=== PATIENT | male | born 1935 | race Caucasian/White ===

== ENCOUNTER 2018-07-03 08:17 | Observation (INO) | payer MEDICARE, OTHER ==
[2018-06-27 12:50] VITALS: BP 127/59
[2018-06-27 13:06] LABS: BASOPHILS % (AUTO) 1.1 % (0.0-5.0); EOSINOPHILS % (AUTO) 5.6 % (0.0-8.0); MEAN CORPUSCULAR HEMOGLOBIN 30.8 pg (27.0-33.0); MEAN CORPUSCULAR HGB CONC 33.6 g/dL (32.0-36.0); MEAN CORPUSCULAR VOLUME 91.8 fL (79-99); MONOCYTES % (AUTO) 10.5 % (3.0-13.0); NEUTROPHILS % (AUTO) 54.8 % (40.0-77.0); NUCLEATED RED BLOOD CELLS 0.1 % (0.0-0.19); PLATELET COUNT (AUTO) 165 K/uL (130-400); RED BLOOD CELL COUNT(AUTO) 4.47 MIL/uL (4.50-6.20); RED CELL DISTRIBUTION WIDTH 13.5 % (11.0-15.5); WHITE BLOOD COUNT (AUTO) 7.1 K/uL (4.8-10.8)
[2018-06-27 13:20] LABS: CREATININE 1.3 mg/dL (0.5-1.5); POTASSIUM 4.4 mmol/L (3.5-5.1)
[2018-06-27 13:32] LABS: INR 1.21 (0.85-1.15); PARTIAL THROMBOPLASTIN TIME 38.5 SEC (26.3-35.5); PROTHROMBIN TIME 12.7 SEC (9.6-11.6)
--- NOTE | 2018-07-02 10:22 | NUR ---
ABNORMAL LABS BMP RESULT SHOWED/REPORTED TO VIKAS POPE. NO FURTHER ORDERS RONNIE. Addendum: 07/02/18 at 1023 by ROCKY PATEL RN RN TYPO ERROR, CORRECT: NO FURTHER ORDERS GIVEN.
[2018-07-03] VITALS (9 sets, daily range): BP systolic 99–143; BP diastolic 54–68
[~2018-07-03] VITALS: Ht 175.3 cm; Wt 130.4 kg
[~2018-07-03 08:17] MED LIST: ALBU1.252 IH; ALLO100T PO; ANTI1CAP5 PO; ASPI-555 PO; ATOR10 PO; CETI10TA86 PO; FOLI0.4T2 PO; LISI1TAB13 PO; METF500S7 PO; METO-408 PO; MULT-1203 PO; RIVA20TA PO; SODIUM CHLORIDE 0.9% 1000ML 1,000 ML IV SCH
[2018-07-03] MEDS ORDERED: CEFAZOLIN SODIUM 1 GM VIAL ONE (09:21)
[2018-07-03] MEDS ORDERED: LIDOCAINE HCL 1% MDV 50ML VIAL ONE (09:21)
[2018-07-03] MEDS ORDERED: BUPIVACAINE/PF 0.25% 30ML VIAL IJ ONE (09:21)
--- NOTE | 2018-07-03 09:30 | NUR ---
PROCEDURE PT TAKEN TO TECHNICAL SERVICES SPECIALIST FOR PROCEDURE. PT AWAKE AND ALERT, FAMILY AT BEDSIDE
[2018-07-03] MEDS ORDERED: VANCOMYCIN 1GM+NS 250ML 250 ML IV ONE ×2 (09:43→09:45)
[2018-07-03] MEDS ORDERED: MIDAZOLAM HCL 1 MG/ML 2ML VIAL ONE ×4 (09:56→11:11)
[2018-07-03] MEDS ORDERED: MEPERIDINE-PF 25 MG/ML SYG ONE ×2 (09:56→10:14)
[2018-07-03] MEDS ORDERED: IOHEXOL-350 50ML VIAL IV ONE (09:58)
[2018-07-03] MEDS ORDERED: IOHEXOL 350 MG/ML 100ML INFUS..BTL IV ONE (10:00)
[2018-07-03] MEDS ORDERED: MEPERIDINE-PF 50 MG/ML SYG ONE (10:31)
[2018-07-03] MEDS ORDERED: THROMBIN-JMI 5000 UNIT/VIAL TP ONE (11:45)
[2018-07-03] MEDS ORDERED: OCTYL 2-CYANOACRYLATE 1 EACH TP ONE (12:01)
[2018-07-03] MEDS ORDERED: ONDANSETRON HCL 4 MG/2 ML VIAL IV PRN (12:30)
[2018-07-03] MEDS ORDERED: ACETAMINOPHEN-CODEINE 300/30MG TAB PO PRN ×2 (12:30)
[2018-07-03] MEDS ORDERED: DEXTROSE 50%-WATER 50 ML DISP.SYRIN IV PRN ×2 (12:30→20:45)
--- NOTE | 2018-07-03 12:50 | NUR ---
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 NO HEMATOMA OR BLEEDING NOTED. VS STABLE ON ARRIVAL. PLAN OF CARE DISCUSS WITH PATIENT/ SPOUSE/SON. PT DENIED ANY PAIN OR DISCOMFORTS.
--- NOTE | 2018-07-03 14:35 | NUR ---
TRANSFERRED PT TRANSFERRED TO ROOM 205, PT AWAKE AND ALERT IN BED, LEFT UPPER CHEST DRESSING DRY AND INTACT, REPORT GIVEN TO VIRGIL ASTORGA.
[2018-07-03] MEDS ORDERED: ALBU1.252 IH (16:34)
[2018-07-03] MEDS ORDERED: METF-444 PO (16:34)
[2018-07-03] MEDS ORDERED: FOLI1TAB15 PO (16:35)
[2018-07-03] MEDS ORDERED: METO25TA6 PO (16:36)
[2018-07-03] MEDS ORDERED: FLUT16H NASAL (16:41)
[2018-07-03] MEDS ORDERED: CYAN10007 IJ (16:41)
[2018-07-03] MEDS ORDERED: MONT10TA24 PO (16:41)
[2018-07-03] MEDS ORDERED: BACL10TA PO (16:41)
[2018-07-03] MEDS ORDERED: NITR0.4T SL (16:41)
[2018-07-03] MEDS: INSULIN HUMULIN R 100 UNIT/ML 3ML SQ SCH ×2 (16:52→21:00)
[2018-07-03] MEDS: ALBUTEROL SULFATE 0.042% 1.25 MG/3 ML INH IH SCH (18:46)
[2018-07-03] MEDS ORDERED: ALBUTEROL SULFATE 0.042% 1.25 MG/3 ML INH IH PRN (20:30)
[2018-07-03] MEDS ORDERED: POTASSIUM CHLORIDE 10% ELIXIR 20 MEQ/15 ML UDCUP PO PRN (20:45)
[2018-07-03] MEDS ORDERED: POTASSIUM CHLORIDE 20MEQ/100ML 100 ML IV PRN (20:45)
[2018-07-03] MEDS ORDERED: LIDOCAINE HCL-MPF 1% 2ML VIAL IVP PRN (20:45)
[2018-07-03] MEDS ORDERED: GLUCAGON 1MG KIT 1 MG ML IM PRN (20:45)
[2018-07-03] MEDS ORDERED: POTASSIUM CHLORIDE 20 MEQ ERTAB PO PRN (20:45)
[2018-07-03] MEDS ORDERED: VANCOMYCIN 1GM+NS 250ML 250 ML IV SCH (21:00)
[2018-07-03] MEDS ORDERED: FOLIC ACID 1 MG TABLET PO SCH (21:00)
[2018-07-03] MEDS ORDERED: ALLOPURINOL 100 MG TABLET PO SCH (21:00)
[2018-07-03] MEDS ORDERED: CETIRIZINE HCL 5 MG TABLET PO SCH (21:00)
[2018-07-03] MEDS ORDERED: ASPIRIN 81MG TAB.CHEW PO SCH (21:00)
[2018-07-03] MEDS ORDERED: ATORVASTATIN CALCIUM 10 MG TABLET PO SCH (21:00)
[2018-07-03] MEDS: METOPROLOL TARTRATE 25 MG TAB PO SCH (21:00)
[2018-07-03] MEDS ORDERED: RIVAROXABAN 20 MG TABLET PO SCH (21:00)
[2018-07-04 00:13] VITALS: BP 118/68
[2018-07-04 04:35] VITALS: BP 121/70
[2018-07-04] MEDS: INSULIN HUMULIN R 100 UNIT/ML 3ML SQ SCH (05:47)
[2018-07-04] MEDS: ALBUTEROL SULFATE 0.042% 1.25 MG/3 ML INH IH SCH (06:58)
[2018-07-04 07:17] VITALS: BP 118/65
--- NOTE | 2018-07-04 07:45 | NUR ---
AM ASSESSMENT PT LAYING IN BED, HOB ELEVATED 30 DEGREES, RESTING. A/O X 3. NO SOB. NO DISTRESS NOTED. DENIES CHEST PAIN OR DISCOMFORT. DENIES PALPITATIONS. DENIES INCISIONAL PAIN. TELE: AV PACED 70s. DENIES N/V AND/OR DIARRHEA. LT UPPER CHEST INCISION DSG DRY & INTACT. NO BLEEDING, NO HEMATOMA NOTED. SLING TO LT ARM. ARM PRECAUTIONS REINFORCE. UP W/ASSISTANCE. INSTRUCTED TO CALL FOR ASSISTANCE. CALL [facility] W/IN REACH.
[2018-07-04] MEDS: METOPROLOL TARTRATE 25 MG TAB PO SCH (07:59)
[2018-07-04] MEDS ORDERED: METFORMIN HCL 500 MG TAB.SR.24H PO SCH (08:00)
[2018-07-04] MEDS ORDERED: [UNRECOGNIZED DRUG - OTHER] PO SCH (09:00)
[2018-07-04] MEDS ORDERED: HYDROCHLOROTHIAZIDE 25 MG TABLET PO SCH (09:00)
[2018-07-04] MEDS ORDERED: LISINOPRIL 20 MG TABLET PO SCH (09:00)
[2018-07-04] MEDS ORDERED: MULTIVITAMIN TABLET PO SCH (09:00)
--- NOTE | 2018-07-04 10:45 | NUR ---
DISCHARGE VERBAL& WRITTEN DISCHARGE INSTRUCTIONS REVIEWED & GIVEN TO PT. QUESTIONS ENCOURAGED & CLARIFIED. PROPER CARE & ACTIVITY BiV ICD UPGRADE. NEW PRESCRIBED MEDICATIONS REVIEWED. PRESCRIPTION GIVEN TO PT; SIGNED COPY PLACED IN CHART. PT INFORMED TO RESUME TAKING METFORMIN TOMORROW. TELE RAFAT REMOVED. IV DISCONTINUED. PT & FAMILY TO GATHER PERSONAL BELONGINGS. WILL NOTIFY STAFF WHEN READY TO BE TAKEN TO PRIVATE VEHICLE.
[2018-07-04 11:14] VITALS: BP 117/65
--- NOTE | 2018-07-04 11:20 | NUR ---
DISCHARGE PT TAKEN TO PRIVATE VEHICLE VIA WC BY A DI[facility]OND PCP, ACCOMPANIED BY FAMILY. NO DISTRESS NOTED.
[2018-07-04] MEDS ORDERED: DOXY100T2 PO (23:57)
== END 2018-07-04 11:19 | disposition home or self-care (01) ==
LOC: DAH 08:17 → DAHIP 08:18 → 2AH 14:24
PROVIDERS: ADMIT Internal Medicine; ATTEND Internal Medicine
DX: I13.10 Hypertensive heart and chronic kidney disease without heart failure, with stage 1 through stage 4 chronic kidney disease, or unspecified chronic kidney disease (principal); N18.9 Chronic kidney disease, unspecified; D68.69 Other thrombophilia; D69.6 Thrombocytopenia, unspecified; E11.21 Type 2 diabetes mellitus with diabetic nephropathy; E11.22 Type 2 diabetes mellitus with diabetic chronic kidney disease; E78.1 Pure hyperglyceridemia; G47.30 Sleep apnea, unspecified; E11.42 Type 2 diabetes mellitus with diabetic polyneuropathy; I25.10 Atherosclerotic heart disease of native coronary artery without angina pectoris; I48.1 Persistent atrial fibrillation; G95.9 Disease of spinal cord, unspecified; I49.5 Sick sinus syndrome; I70.0 Atherosclerosis of aorta; K80.20 Calculus of gallbladder without cholecystitis without obstruction; M10.9 Gout, unspecified; M51.9 Unspecified thoracic, thoracolumbar and lumbosacral intervertebral disc disorder; J30.9 Allergic rhinitis, unspecified; J84.10 Pulmonary fibrosis, unspecified; Z79.01 Long term (current) use of anticoagulants; Z95.0 Presence of cardiac pacemaker; Z96.653 Presence of artificial knee joint, bilateral; Z82.49 Family history of ischemic heart disease and other diseases of the circulatory system; Z83.3 Family history of diabetes mellitus; Z82.3 Family history of stroke
CPT/HCPCS: 33225; 33228; 36415; 71046; 80048; 82948 ×5; 85025; 85610; 85730; 93005; 93724; 94640 ×2; 94664; 96365; 96366; 96372; A4606; C1769 ×3; C1894; C1900; C2621; G0378 ×23; J2175 ×3; J2250 ×4; J3370 ×3; J3490 ×3; J7030; Q9965; Q9967 ×2; 99156; 99157; J0690

== ENCOUNTER → 2018-12-12 | Outpatient (CLI) | payer OTHER ==
[~2018-12-12] MED LIST changes: +BACL10TA PO; -CETI10TA86 PO; +CYAN10007 IJ; +DOXY100T2 PO; +FLUT16H NASAL; -FOLI0.4T2 PO; +FOLI1TAB15 PO; -LISI1TAB13 PO; +LISI1TAB29 PO; +METF-444 PO; -METF500S7 PO; -METO-408 PO; +METO25TA6 PO; +MONT10TA24 PO; +NITR0.4T SL; -SODIUM CHLORIDE 0.9% 1000ML 1,000 ML IV SCH
== END | disposition home or self-care (01) ==
LOC: RAH 13:28
PROVIDERS: ATTEND Physical Medicine & Rehabilitation
DX: M47.26 Other spondylosis with radiculopathy, lumbar region (principal); M47.22 Other spondylosis with radiculopathy, cervical region; M25.78 Osteophyte, vertebrae
CPT/HCPCS: 72052; 72110

== ENCOUNTER → 2019-10-02 | Outpatient (CLI) | payer OTHER ==
[~2019-10-02] MED LIST changes: -ASPI-555 PO; +ASPI-556 PO; -MONT10TA24 PO; +MONT10TA26 PO; +REGADENOSON 0.4 MG/5 ML PF SYG IVP SCH
== END | disposition home or self-care (01) ==
LOC: SHCH 08:42
PROVIDERS: ATTEND Internal Medicine Cardiovascular Disease
DX: I25.89 Other forms of chronic ischemic heart disease (principal); I25.10 Atherosclerotic heart disease of native coronary artery without angina pectoris
CPT/HCPCS: 78452; 93017; 96374; A9500 ×2; J2785

== ENCOUNTER → 2019-10-14 | Outpatient (CLI) | payer OTHER ==
[~2019-10-14] MED LIST changes: -REGADENOSON 0.4 MG/5 ML PF SYG IVP SCH
== END | disposition home or self-care (01) ==
LOC: OIH 11:05
PROVIDERS: ATTEND Physical Medicine & Rehabilitation
DX: M25.562 Pain in left knee (principal); Z96.652 Presence of left artificial knee joint
CPT/HCPCS: 73560

== ENCOUNTER → 2020-06-22 | Outpatient (CLI) | payer OTHER ==
[~2020-06-22] MED LIST changes: -ALBU1.252 IH; -ALLO100T PO; -ANTI1CAP5 PO; -BACL10TA PO; +CETI-89 PO; -CYAN10007 IJ; -DOXY100T2 PO; -FLUT16H NASAL; -FOLI1TAB15 PO; +FOLIC ACID PO; +GABA300C PO; +ISOS30TA92 PO; -MONT10TA26 PO; -MULT-1203 PO; +MULT-1258 PO
== END | disposition home or self-care (01) ==
LOC: RAH 14:45
PROVIDERS: ATTEND Physical Medicine & Rehabilitation
DX: M47.26 Other spondylosis with radiculopathy, lumbar region (principal); M48.061 Spinal stenosis, lumbar region without neurogenic claudication; Z96.641 Presence of right artificial hip joint; Z96.698 Presence of other orthopedic joint implants
CPT/HCPCS: 72131

== ENCOUNTER 2022-08-25 13:00 | Inpatient (IN) | payer MEDICARE ==
[~2022-08-25] VITALS: Ht 170.2 cm; Wt 128.1 kg
[2022-08-25 11:23] LABS: HEMATOCRIT 38.8 % (42-54); MEAN CORPUSCULAR HEMOGLOBIN 30.1 pg (27.0-33.0); MEAN CORPUSCULAR VOLUME 91.3 fL (79-99); PLATELET COUNT (AUTO) 138 K/uL (130-400); RED BLOOD CELL COUNT(AUTO) 4.25 MIL/uL (4.50-6.20); RED CELL DISTRIBUTION WIDTH 12.8 % (11.0-15.5); WHITE BLOOD COUNT (AUTO) 5.5 K/uL (4.8-10.8)
[2022-08-25 11:34] LABS: ALBUMIN 3.4 g/dL (3.5-5.0); CARBON DIOXIDE 25 mmol/L (21-32); CHLORIDE 101 mmol/L (101-111); CREATININE 1.3 mg/dL (0.5-1.5); GLOMERULAR FILTR. RATE CALC 54 mL/min (>90); GLUCOSE,RANDOM 199 mg/dL (70-105); POTASSIUM 3.8 mmol/L (3.5-5.1); SODIUM SERUM 136 mmol/L (136-145); UREA NITROGEN, BLOOD 20 mg/dL (7-18)
[2022-08-25 11:38] LABS: INR 1.28 (0.85-1.15); PROTHROMBIN TIME 14.6 SEC (9.6-11.6)
[2022-08-25 11:38] LABS: APPEARANCE,URINE CLEAR (CLEAR); BILIRUBIN,URINE NEGATIVE (NEGATIVE); COLOR,URINE YELLOW (YELLOW); GLUCOSE, URINE (UA) 30 mg/dL (NEGATIVE); KETONES,URINE NEGATIVE (NEGATIVE); LEUKOCYTE ESTERASE ,URINE 25 Leu/uL (NEGATIVE); NITRATE,URINE NEGATIVE (NEGATIVE); OCCULT BLOOD,URINE NEGATIVE (NEGATIVE); PH,URINE 5.5 (5.0-8.0); PROTEIN,URINE NEGATIVE (NEGATIVE); UROBILINOGEN,URINE 0.2 mg/dL (0.2-1.0)
[2022-08-25 11:40] LABS: PARTIAL THROMBOPLASTIN TIME 39.2 SEC (26.3-35.5)
[2022-08-25 11:51] LABS: CRP QUANTITATIVE < 0.03 mg/L (0.00-9.0)
[2022-08-25 11:57] VITALS: BP 135/74; PULSE 84; RESP 17
[2022-08-25 12:15] LABS: EOSINOPHILS % (MANUAL) 6 % (1-6); LYMPHOCYTES % (MANUAL) 18 % (22-44); MAN.DIFF COMMENT-IMPRESSION MANUAL DIFFERENTIAL; MONOCYTES % (MANUAL) 7 % (2-9); SEGMENTED NEUTROPHILS % 69 % (40-70)
[2022-08-25 12:16] LABS: PLATELET MORPHOLOGY COMMENT ADEQUATE
[~2022-08-25 13:00] MED LIST changes: +ALLO100T PO; +CARV3.12 PO; +DILT120C78 PO; +DOCU100T PO; +FLUT1AER IH; +GLIM1TAB18 PO; +HYDR25TA PO; -LISI1TAB29 PO; +LISI5TAB21 PO; -METF-444 PO; -METO25TA6 PO; +MV-M1CAP24 PO; -NITR0.4T SL; +PANT40TA54 PO; +VIT1CAPS47 PO
[2022-08-28] VITALS (25 sets, daily range): BP systolic 129–162; BP diastolic 67–81; PULSE 71–102; RESP 15–20; O2SAT 98
[2022-08-28] MEDS ORDERED: CEFAZOLIN SODIUM 1 GM VIAL ONE (08:28)
[2022-08-28] MEDS ORDERED: 0.9%NACL 1000ML 1,000 ML IV ONE (08:28)
[2022-08-28] MEDS ORDERED: CEFAZOLIN SODIUM 2 GM VIAL ONE (08:28)
[2022-08-28] MEDS ORDERED: CYAN10007 IJ (09:45)
[2022-08-28] MEDS ORDERED: LIDOCAINE PF 100MG/5ML (2%) SYRINGE 5ML ONE (10:42)
[2022-08-28] MEDS ORDERED: DEXAMETHASONE SOD PHOSPHATE 10MG/ML 1ML VIAL ONE (10:42)
[2022-08-28] MEDS ORDERED: SUCCINYLCHOLINE 200MG/10ML SYR ONE (10:42)
[2022-08-28] MEDS ORDERED: ONDANSETRON 4MG INJ ONE (10:42)
[2022-08-28] MEDS ORDERED: FENTANYL CITRATE PF 50 MCG/1 ML 2ML VIAL ONE ×2 (10:43→13:49)
[2022-08-28] MEDS ORDERED: PROPOFOL 10 MG/ML 20ML VIAL IV ONE (10:43)
[2022-08-28] MEDS ORDERED: ROCURONIUM 10MG/1ML SYR 10 MG/ML ML ONE ×2 (10:43→13:35)
[2022-08-28] MEDS ORDERED: EPHEDRINE SULFATE 50 MG/ML AMPULE ONE (10:43)
[2022-08-28] MEDS ORDERED: ALBUTEROL INHALER 90MCG/INH IH ONE (10:46)
[2022-08-28] MEDS ORDERED: KETAMINE 50MG/ML SYRINGE 50 MG/ML DISP.SYRIN ONE (10:55)
[2022-08-28] MEDS ORDERED: ROPIVACAINE 0.5% 5MG/ML 30ML IJ ONE (10:55)
[2022-08-28] MEDS ORDERED: NITR100C PO (12:36)
[2022-08-28] MEDS ORDERED: CEFAZOLIN SODIUM 2 GM VIAL IVPB ONE (12:41)
[2022-08-28] MEDS ORDERED: TRANEXAMIC ACID 1000MG/10ML IV ONE (12:46)
[2022-08-28] MEDS ORDERED: SUGAMMADEX SODIUM 200 MG/2 ML VIAL IV ONE (14:39)
[2022-08-28] MEDS ORDERED: TRANEXAMIC ACID 1000MG/10ML ONE (15:23)
[2022-08-28] MEDS ORDERED: CYCLOBENZAPRINE HCL 10 MG TABLET PO PRN (17:00)
[2022-08-28] MEDS ORDERED: POTASSIUM CHLORIDE 20MEQ/100ML 100 ML IV PRN (17:00)
[2022-08-28] MEDS ORDERED: ONDANSETRON 4MG INJ IVP PRN (17:00)
[2022-08-28] MEDS ORDERED: FERROUS FUMARATE 324 MG TABLET PO PRN (17:00)
[2022-08-28] MEDS ORDERED: KCL 20 MEQ ERTAB PO PRN (17:00)
[2022-08-28] MEDS ORDERED: POTASSIUM CHLORIDE 10% ELIXIR 20 MEQ/15 ML UDCUP PO PRN (17:00)
[2022-08-28] MEDS ORDERED: TRAMADOL HCL 50 MG TABLET PO PRN (17:00)
[2022-08-28] MEDS ORDERED: KETOROLAC 15MG/ML VIAL (15MG/ML) IV PRN (17:00)
[2022-08-28] MEDS ORDERED: CALCIUM CARB 500MG PO PRN (17:00)
[2022-08-28] MEDS: DOCUSATE SODIUM 100 MG CAP PO SCH ×2 (20:51→21:01)
[2022-08-28] MEDS: INSULIN HUMULIN R 100 UNIT/ML 3ML SQ SCH (20:59)
[2022-08-28] MEDS: GLIMEPIRIDE 0.5 MG PO SCH (21:00)
[2022-08-28] MEDS ORDERED: NON-FORMULARY MEDICATION 1 EACH (Docusate Sodium 100 MG) PO SCH (21:00)
[2022-08-28] MEDS ORDERED: NON-FORMULARY MEDICATION 1 EACH ([Folic Acid] 1 MG) PO SCH (21:00)
[2022-08-28] MEDS: GABAPENTIN 100 MG CAPSULE PO SCH (21:00)
[2022-08-28] MEDS: CARVEDILOL 3.125 MG TABLET PO SCH (21:01)
[2022-08-28] MEDS: GABAPENTIN 300 MG CAPSULE PO SCH (21:01)
[2022-08-28] MEDS: FOLIC ACID 1 MG TABLET PO SCH (21:01)
[2022-08-28] MEDS: ATORVASTATIN 10 MG TABLET PO SCH (21:01)
[2022-08-28] MEDS: CEFAZOLIN SODIUM 1 GM VIAL IVPB SCH (22:26)
[2022-08-29] MEDS: KETOROLAC 15MG/ML VIAL (15MG/ML) IV SCH ×2 (01:13→09:56)
[2022-08-29] MEDS: 0.9%NACL 1000ML 1,000 ML IV SCH ×2 (03:32→13:00)
[2022-08-29 04:00] VITALS: BP 139/84; PULSE 86; RESP 20
[2022-08-29 04:55] LABS: HEMATOCRIT 33.1 % (42-54); MEAN CORPUSCULAR HEMOGLOBIN 29.7 pg (27.0-33.0); MEAN CORPUSCULAR HGB CONC 32.3 g/dL (32.0-36.0); MEAN CORPUSCULAR VOLUME 91.9 fL (79-99); RED BLOOD CELL COUNT(AUTO) 3.6 MIL/uL (4.50-6.20); RED CELL DISTRIBUTION WIDTH 13.1 % (11.0-15.5)
[2022-08-29 05:19] LABS: CREATININE 1.3 mg/dL (0.5-1.5)
[2022-08-29] MEDS: CEFAZOLIN SODIUM 1 GM VIAL IVPB SCH (05:52)
[2022-08-29] MEDS: INSULIN HUMULIN R 100 UNIT/ML 3ML SQ SCH ×5 (06:38→21:00)
[2022-08-29 08:00] VITALS: BP 132/75; PULSE 77; RESP 20; O2SAT 96
[2022-08-29] MEDS: [UNRECOGNIZED DRUG - OTHER] PO SCH (09:00)
[2022-08-29] MEDS: GABAPENTIN 300 MG CAPSULE PO SCH ×2 (09:00→21:39)
[2022-08-29] MEDS: GLIMEPIRIDE 0.5 MG PO SCH ×2 (09:00→21:00)
[2022-08-29] MEDS ORDERED: NON-FORMULARY MEDICATION 1 EACH (Cetirizine HCl (Zyrtec) 10 MG) PO SCH (09:00)
[2022-08-29] MEDS ORDERED: FLUTICASONE/VILANTEROL 1 EACH AER.POW.BA IH SCH (09:00)
[2022-08-29] MEDS ORDERED: NON-FORMULARY MEDICATION 1 EACH (Multivits-Min/FA/Lycopene/Lut (Centrum Silver Tablet) 1 E PO SCH (09:00)
[2022-08-29] MEDS ORDERED: NON-FORMULARY MEDICATION 1 EACH (Diltiazem HCl (Diltiazem ER) 120 MG) PO SCH (09:00)
[2022-08-29] MEDS: OCUVITE ADULT PO SCH (09:00)
[2022-08-29] MEDS: ASPIRIN 325MG TAB PO SCH (09:57)
[2022-08-29] MEDS: DOCUSATE SODIUM 100 MG CAP PO SCH ×3 (09:58→21:00)
[2022-08-29] MEDS: DILTIAZEM 120MG SR CAP PO SCH (09:58)
[2022-08-29] MEDS: MULTIVITAMIN TABLET PO SCH (09:59)
[2022-08-29] MEDS: CARVEDILOL 3.125 MG TABLET PO SCH ×2 (09:59→21:39)
[2022-08-29] MEDS: POLYETHYLENE GLYCOL 3350 17 GM POWD.PACK PO SCH (09:59)
[2022-08-29] MEDS: ISOSORBIDE MONO 30MG SR TAB PO SCH (09:59)
[2022-08-29] MEDS: HYDROCHLOROTHIAZIDE 25 MG TABLET PO SCH (09:59)
[2022-08-29] MEDS: CETIRIZINE HCL 5 MG TABLET PO SCH (10:00)
[2022-08-29] MEDS: PANTOPRAZOLE 40 MG TAB DR PO SCH (10:00)
[2022-08-29] MEDS: GABAPENTIN 100 MG CAPSULE PO SCH ×3 (10:00→21:00)
[2022-08-29] MEDS: LISINOPRIL 5 MG TABLET PO SCH (10:00)
[2022-08-29] MEDS: ALLOPURINOL 100 MG TABLET PO SCH (10:01)
[2022-08-29 16:00] VITALS: BP 143/76; PULSE 81; RESP 20
[2022-08-29 20:00] VITALS: BP 126/68; PULSE 79; RESP 20
[2022-08-29] MEDS: FOLIC ACID 1 MG TABLET PO SCH (21:38)
[2022-08-29] MEDS: ATORVASTATIN 10 MG TABLET PO SCH (21:38)
[2022-08-30] VITALS: BP 110/58; PULSE 74; RESP 20
[2022-08-30 04:00] VITALS: BP 131/70; PULSE 79; RESP 20
[2022-08-30] MEDS: INSULIN HUMULIN R 100 UNIT/ML 3ML SQ SCH ×2 (05:51→11:30)
[2022-08-30] MEDS: HYDROCODONE/ACETAMINOPHEN 5/325 MG TAB PO PRN ×2 (06:54→12:56)
[2022-08-30 08:00] VITALS: BP 116/67; PULSE 78; RESP 18
[2022-08-30] MEDS: CETIRIZINE HCL 5 MG TABLET PO SCH (08:35)
[2022-08-30] MEDS: DOCUSATE SODIUM 100 MG CAP PO SCH (08:35)
[2022-08-30] MEDS: MULTIVITAMIN TABLET PO SCH (08:36)
[2022-08-30] MEDS: GABAPENTIN 300 MG CAPSULE PO SCH (08:36)
[2022-08-30] MEDS: LISINOPRIL 5 MG TABLET PO SCH (08:36)
[2022-08-30] MEDS: POLYETHYLENE GLYCOL 3350 17 GM POWD.PACK PO SCH (08:37)
[2022-08-30] MEDS: PANTOPRAZOLE 40 MG TAB DR PO SCH (08:37)
[2022-08-30] MEDS: ALLOPURINOL 100 MG TABLET PO SCH (08:37)
[2022-08-30] MEDS: ISOSORBIDE MONO 30MG SR TAB PO SCH (08:37)
[2022-08-30] MEDS: HYDROCHLOROTHIAZIDE 25 MG TABLET PO SCH (08:37)
[2022-08-30] MEDS: CARVEDILOL 3.125 MG TABLET PO SCH (08:37)
[2022-08-30] MEDS: [UNRECOGNIZED DRUG - OTHER] PO SCH (08:39)
[2022-08-30] MEDS: OCUVITE ADULT PO SCH (08:39)
[2022-08-30] MEDS: GLIMEPIRIDE 0.5 MG PO SCH (08:39)
[2022-08-30] MEDS: ASPIRIN 325MG TAB PO SCH (08:40)
[2022-08-30] MEDS: DILTIAZEM 120MG SR CAP PO SCH (08:40)
[2022-08-30] MEDS: GABAPENTIN 100 MG CAPSULE PO SCH ×2 (08:40→15:17)
[2022-08-30] MEDS ORDERED: BREO ELLIPTA 100-25 MCG INH IH SCH (09:00)
[2022-08-30] MEDS ORDERED: ASPIRIN 81 MG EC TAB PO SCH (09:00)
[2022-08-30 12:00] VITALS: BP 98/53; PULSE 75; RESP 18
[2022-08-30] MEDS ORDERED: DOCU-116 PO (14:24)
[2022-08-30] MEDS ORDERED: HYDR-4060 PO (14:24)
[2022-08-30] MEDS ORDERED: CYCL-309 PO (14:24)
[2022-08-30 16:00] VITALS: BP 108/60; PULSE 76; RESP 18
[2022-08-30] MEDS ORDERED: RIVAROXABAN 20 MG TABLET PO SCH (21:00)
[2022-08-31] MEDS ORDERED: BISACODYL 10 MG SUPP.RECT RC PRN (17:00)
== END 2022-08-30 18:30 | disposition home or self-care (01) | DRG 470 ==
LOC: DAHIP 08-28 08:01 → OBSVTOIN 08-28 08:01 → INTOOBSV 08-28 08:01 → 4DH 08-28 17:35
PROVIDERS: ADMIT Student in an Organized Health Care Education/Training Program; ATTEND Student in an Organized Health Care Education/Training Program
PROC: 3E0T3BZ Introduction of Anesthetic Agent into Peripheral Nerves and Plexi, Percutaneous Approach (ICD-10-PCS; 2022-08-28)
PROC: 0SRB0JZ Replacement of Left Hip Joint with Synthetic Substitute, Open Approach (ICD-10-PCS; principal; 2022-08-28 13:00)
DX: M16.12 Unilateral primary osteoarthritis, left hip (principal); D62 Acute posthemorrhagic anemia
CPT/HCPCS: 36415; 73502; 73503; 80048; 81001; 82040; 82948; 84134; 85025; 85027; 85610; 85730; 86140; 87088; 87426; 87641; 97039; C1776; G0378; J0330; J0690; J1100; J1815; J1885; J2001; J2405; J2704; J2795; J3010; J3490; J7030; A4215; A4221; A4222; A4223; A4600; A4649; A4663; A4930; A5120; A6255; G0168

== ENCOUNTER → 2023-02-21 | Outpatient (CLI) | payer MEDICARE ==
[~2023-02-21] MED LIST changes: +CYCL-309 PO; +DOCU-116 PO; +HYDR-4060 PO; +NITR100C PO
== END | disposition home or self-care (01) ==
LOC: RAH 11:29
PROVIDERS: ATTEND Internal Medicine Cardiovascular Disease
DX: I70.0 Atherosclerosis of aorta (principal); I71.40 Abdominal aortic aneurysm, without rupture, unspecified
CPT/HCPCS: 76775

== ENCOUNTER → 2024-07-03 | Outpatient (CLI) | payer MEDICARE ==
[~2024-07-03] MED LIST changes: -GLIM1TAB18 PO; +GLIM1TAB56 PO
--- NOTE | 2024-07-03 13:40 | NUR ---
MBSS COMPLETED (OUTPATIENT). No aspiration; no penetrations. Recommend regular solids, thin liquids and pills whole with liquids as tolerated. Compensatory strategies: 1. sit upright during oral intake 2. extra dry swallows DIAGNOSTIC FINDINGS: Oropharyngeal swallowing is within functional limits. No penetrations or aspiration observed. Pt with mild pharyngeal residue cleared with re-swallows. Otherwise, exam was negative for etiology of patients c/o globus sensation/choking with oral intake. SHAPING MACHINE TENDER reviewed results and recommendations with patient. SHAPING MACHINE TENDER educated patient on risks and consequences of aspiration. Speech therapy not warranted at this time. All questions answered. Addendum: 07/03/[address] IZA CHAPPELL Amended: Links added.
--- NOTE | 2024-07-03 14:35 | HMCIMG ---
MODIFIED BARIUM SWALLOW W CINE REASON: Dysphagia, unspecified/Hoarseness. COMPARISON: None TECHNIQUE: Modified barium swallow study was performed with referring speech therapist FINDINGS: Please see procedure report by the referring speech therapist. IMPRESSION: Modified barium swallow study.
== END | disposition home or self-care (01) ==
LOC: RAH 13:21
PROVIDERS: ATTEND Internal Medicine
DX: R49.0 Dysphonia (principal); R13.10 Dysphagia, unspecified
CPT/HCPCS: 74230; 92611